=== PATIENT | female | born 1975 | race Caucasian/White ===

== ENCOUNTER 2016-09-25 17:28 | Emergency (ER) | payer OTHER ==
[~2016-09-25] VITALS: Ht 167.6 cm; Wt 108.9 kg
--- NOTE | 2016-09-25 17:54 | ED AMS/SEIZURE/WEAK/DIZZY ---
History of Present Illness General Chief Complaint: Dizziness Stated Complaint: PT WAS SENT BY FOR VERTIGO Source: patient Exam Limitations: no limitations Vital Signs & Intake/Output Vital Signs & Intake/Output Vital Signs Date Time Temp Pulse Resp B/P Pulse O2 O2 Flow FiO2 Ox Delivery Rate 09/25 2017 76 132/88 09/25 1846 98.0 74 18 140/93 96 Room Air 09/25 1736 70 154/96 09/25 1733 97.4 68 18 131/87 95 Room Air ED Intake and Output 09/26 0000 09/25 1200 Intake Total Output Total Balance Patient 240 lb Weight Allergies Coded Allergies: No Known Allergies (09/25/16) Reconcile Medications Levonorgestrel (Mirena) 20 MCG/24 HOUR (5 YEARS) IUD CONTROL (Reported) Meclizine HCl 25 MG TABLET 1 TAB PO Q8 PRN dizziness Metoclopramide HCl (Reglan) 10 MG TABLET 1 TAB PO 4 TIMES/DAY PRN nausea Triage Note: PRESENTS TO ED REPORTING DIZZINES SINCE SHE WOKE UP THIS AM. Triage Nurses Notes Reviewed? yes : No Patient currently breastfeeds: No HPI: Patient is a 41 year old female presents complaining of nausea and dizziness onset this morning after waking up. Symptoms worsen with head movement and lying down. Symptoms are currently severe, have been progressively worsening throughout the day. Pain is 0/10. Denies vomiting, fevers, chills, tinnitus, head trauma, extremity numbness or weakness. (JUNIOR GOFF) Past History Travel History Traveled to [place] past 21 day No Medical History Any Pertinent Medical History? none Surgical History Surgical History: non-contributory Psychosocial History What is your primary language Macanese Tobacco Use: Quit >30 days ago Family History Hx Contributory? No (JUNIOR GOFF) Review of Systems Review of Systems Constitutional: Denies: chills, fever. EENTM: Denies: ear pain, hearing changes, nasal congestion. Respiratory: Denies: cough, short of breath. Cardiovascular: Denies: chest pain, palpitations, syncope. GI: Reports: nausea. Denies: abdominal pain. Genitourinary: Reports: no symptoms. Musculoskeletal: Denies: back pain, neck pain. Skin: Reports: no symptoms. Neurological/Psychological: Denies: headache, numbness, unable to move lower ext, unable to move upper ext. Hematologic/Endocrine: Denies: bruising, bleeding. Immunologic/Allergic: Denies: splenectomy. (JUNIOR GOFF) Physical Exam Physical Exam General Appearance: well developed/nourished, alert, awake Head: atraumatic, normal appearance Eyes: Bilateral: normal appearance, PERRL, EOMI. Ears, Nose, Throat: normal pharynx, normal ENT inspection, hearing grossly normal, normal TM bilaterally Neck: normal inspection, supple, full range of motion, no appreciable carotid bruit Respiratory: normal breath sounds, chest non-tender, no respiratory distress Cardiovascular: regular rate/rhythm (no appreciable murmur) Back: normal inspection, normal range of motion Extremities: normal range of motion, strength 5/5, sensation normal Neurologic/Psych: no motor/sensory deficits, awake, alert, oriented x 3, guide visitor II- XII nml as tested Skin: intact, normal color, warm/dry Lymphatic: no anterior cervical samantha Core Measures ACS in differential dx? No CVA/TIA Diagnosis: No Severe Sepsis Present: No Septic Shock Present: No (JUNIOR GOFF) Progress Differential Diagnosis: arrythmia, anemia, benign positional vertigo, CVA/stroke , dehydration, drug intoxication, electrolyte imbalance, hypoglycemia, hypoxia, intracranial Hem., intracranial mass/tumor, labrynthitis, seizure disorder, vertebrobasilar insuff Plan of Care: Orders Procedure Date/time Status HUMAN BETA HCG SCREEN 09/25 1812 Complete CBC WITHOUT DIFFERENTIAL 09/25 1812 Complete BASIC METABOLIC PANEL 09/25 1812 Complete Laboratory Tests 09/25/16 1820: Anion Gap 15, Estimated GFR > 60, BUN/Creatinine Ratio 13.8, Glucose 98, Calcium 10.6 H, Total Beta HCG NEGATIVE, CBC w Diff NO MAN DIFF REQ, RBC 5.20, MCV 88.1 , MCH 29.1, RDW 13.3, MPV 8.6, Gran % 85.8 H, Lymphocytes % 9.7 L, Monocytes % 3.5, Eosinophils % 0.8, Basophils % 0.2, Absolute Granulocytes 10.0 H, Absolute Lymphocytes 1.1 L, Absolute Monocytes 0.4, Absolute Eosinophils 0.1, Absolute Basophils 0, PUBS MCHC 33.1 1904: Dizziness improving. No acute focal neurologic deficits, appears consistent with peripheral vertigo. Neuro imaging deferred. (JUNIOR GOFF) Initial ED EKG: none (JUNIOR GOFF) Departure Departure Time of Disposition: 1908 Disposition: HOME OR SELF CARE Condition: Stable Clinical Impression Primary Impression: Vertigo Referrals: RADHA DELA CRUZ (PCP/Family) ARMANDO VINSON MD Additional Instructions: Follow up with your primary care provider or with Dr. Vinson(ear nose and throat doctor) if no improvement within 2 days. Return to the ER if unable to stay hyrated or worsening of symptoms. Departure Forms: Customer Survey General Discharge Information Prescriptions: Current Visit Scripts Meclizine HCl 1 TAB PO Q8 PRN dizziness #12 TAB Metoclopramide HCl (Reglan) 1 TAB PO 4 TIMES/DAY PRN nausea #12 TAB (JUNIOR GOFF) PA/ELECTRICIAN HELPER [employer]OWERHOU[employer] Co-Sign Statement Statement: ED Attending supervision documentation- [] I saw and evaluated the patient. I have also reviewed all the pertinent lab results and diagnostic results. I agree with the findings and the plan of care as documented in the PA's/ELECTRICIAN HELPER POWERHOUSE's documentation. [X] I have reviewed the ED Record and agree with the PA's/ELECTRICIAN HELPER POWERHOUSE's documentation. [] Additions or exceptions (if any) to the PAs/ELECTRICIAN HELPER POWERHOUSE's note and plan are summarized below: [] (TERESA ABAD DO
[2016-09-25] MEDS ORDERED: MIRENA1 EACH (18:03)
[2016-09-25 18:31] LABS: ABSOLUTE BASOPHIL COUNT 0 /CUMM (0.0-0.2); ABSOLUTE EOSINOPHIL COUNT 0.1 /CUMM (0.0-0.7); ABSOLUTE LYMPH COUNT 1.1 /CUMM (1.2-3.4); ABSOLUTE MONOCYTE COUNT 0.4 /CUMM (0.10-0.60); BASOPHIL % 0.2 % (0.0-2.0); EOSINOPHIL % 0.8 % (0-5); GRANULOCYTE % 85.8 % (42.2-75.2); HEMATOCRIT 45.8 % (37-47); MEAN CORPUSCULAR HGB 29.1 PG (27.0-31.0); MEAN CORPUSCULAR HGB CONC 33.1 G/DL (33.0-37.0); MEAN CORPUSCULAR VOLUME 88.1 FL (81.0-99.0); MEAN PLATELET VOLUME 8.6 FL (7.4-10.4); PLATELET COUNT 322 /CUMM (130-400); RBC DISTRIBUTION WIDTH 13.3 % (11.5-14.5); WHITE BLOOD CELL COUNT 11.7 /CUMM (4.8-10.8)
[2016-09-25] MEDS ORDERED: MECLIZINE HCL25 MG PO (19:12)
[2016-09-25] MEDS ORDERED: REGLAN10 M1 PO (19:12)
[2016-09-25 20:18] VITALS: BP 132/88
== END 2016-09-25 20:18 ==
LOC: ERH 17:28
PROVIDERS: Physician Assistant
DX: R42 Dizziness and giddiness (principal)
CPT/HCPCS: 96374; 96375; J1200; J2765

== ENCOUNTER 2018-02-26 09:18 | Inpatient (IN) | payer OTHER ==
[~2018-02-26] VITALS: Ht 167.6 cm; Wt 113.4 kg
[~2018-02-26 09:18] MED LIST: MECLIZINE HCL25 MG PO; MIRENA1 EACH; PERCOCET 5-3251 EACH PO; REGLAN10 M1 PO
--- NOTE | 2018-02-26 10:00 | ED NECK/BACK PAIN COMPLAINT ---
History of Present Illness General Chief Complaint: Low Back Pain/Injury Stated Complaint: LBP Source: patient, family Exam Limitations: no limitations Vital Signs & Intake/Output Vital Signs & Intake/Output Vital Signs Date Time Temp Pulse Resp B/P B/P Pulse O2 O2 Flow FiO2 Mean Ox Delivery Rate 02/26 1458 98.1 72 20 133/86 98 Room Air 02/26 1258 97.7 89 18 132/80 98 Room Air 02/26 1153 98.1 92 18 129/84 98 Room Air 02/26 0929 97.6 105 30 133/79 100 Room Air ED Intake and Output 02/27 0000 02/26 1200 Intake Total Output Total Balance Patient 250 lb 250 lb Weight Weight Reported by Patient Measurement Method Allergies Coded Allergies: No Known Allergies (09/25/16) Reconcile Medications Levonorgestrel (Mirena) 20 MCG/24 HOUR (5 YEARS) IUD CONTROL (Reported) Meclizine HCl 25 MG TABLET 1 TAB PO Q8 PRN dizziness Metoclopramide HCl (Reglan) 10 MG TABLET 1 TAB PO 4 TIMES/DAY PRN nausea Oxycodone HCl/Acetaminophen (Percocet 5-325 MG Tablet) 5 MG-325 MG TABLET 1 TAB PO BID back pain Triage Note: 42F RETURNS FROM YESTERDAY FOR LBP WITH RADIATIONG AND NUMBNESS DOWN LEFT LEG. HAD MRI WHICH SHOWED SEVERAL PULGING AND PROTRUDING DISKS. UNABLE TO LAY, SIT OR WALK. 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 PAIN 10/10. DENIES LOSS OF B/B Triage Nurses Notes Reviewed? yes : No Patient currently breastfeeds: No HPI: Patient presents for evaluation of a severe left-sided back pain and left leg pain and paresthesias that began days ago. Patient was evaluated in the [facility] emergency Department and had an MRI scan that showed disc disease. Her case was discussed at that point with Dr. Olson, neurosurgery. She was planning on following up with the neurosurgeon but her pain has become uncontrolled again. She has been taking Percocet ibuprofen and Flexeril regularly but is still experiencing a severe pain that worsens with movement. She states that she has diminished sensation in the left lower extremity. Past History Travel History Traveled to [place] past 21 day No Medical History Any Pertinent Medical History? see below for history Neurological: NONE EENT: NONE Cardiovascular: NONE Respiratory: NONE Gastrointestinal: NONE Hepatic: NONE Renal: NONE Musculoskeletal: BACK PAIN, DISC DISEASE Psychiatric: NONE Endocrine: NONE Surgical History Surgical History: non-contributory Psychosocial History What is your primary language Monegasque Tobacco Use: Never used Family History Hx Contributory? No Review of Systems Review of Systems Constitutional: Reports: no symptoms. Eyes: Reports: no symptoms. Ears, Nose, Throat, Mouth: Reports: no symptoms. Respiratory: Reports: no symptoms. Cardiovascular: Reports: no symptoms. Gastrointestinal/Abdominal: Reports: no symptoms. Musculoskeletal: Reports: see HPI. Skin: Reports: no symptoms. Neurological/Psychological: Reports: paresthesia. All Other Systems: Reviewed and Negative Physical Exam Physical Exam Neck: SEE BELOW Comments: Gen.: Well-nourished, well-developed, no acute respiratory distress. Moderate to severe distress while at rest secondary to back pain. Pain worsens with movement. Head: Normocephalic, atraumatic. Eyes: Normal inspection bilaterally Ears: Normal inspection bilaterally Nose: Normal inspection Throat/mouth : Moist mucosa Neck: Supple, full range of motion, no goiter Lungs: Quiet respirations Back: Decreased range of motion secondary to pain. Tenderness over the lumbosacral spine without associated soft tissue swelling ecchymoses or erythema. Extremities: Upper extremities: Normal range of motion grossly, lower extremities: Exam limited as patient is sitting in a wheelchair with her left lower extremity and buttock lifted off the stretcher, supported on arms. Sensation is present but diminished and altered throughout the left lower extremity. Sensation is altered but present on the left saddle area compared to right. Neurologic: Cranial nerves grossly intact, speech is clear Skin: warm and dry Psychiatric: Calm, cooperative, no apparent delusions or hallucinations Core Measures CVA/TIA Diagnosis: No Progress Differential Diagnosis: cauda equina syn, herniated disc, myofascial strain, sciatica, DEGENERATIVE DISC DISEASE Plan of Care: Orders Procedure Date/time Status Regular Diet 02/26 D Complete Weight 02/26 1424 Active Vital Signs 02/26 1424 Active Teach/Educate 02/26 1424 Active Pain Treatment and Response 02/26 1424 Active Nutritional Intake, Monitor 02/26 1424 Active Isolation 02/26 1424 Active Intake & Output 02/26 1424 Active Patient Care Conference 02/26 1424 Active Activity/Ambulation 02/26 142 Active Pathway - chart 02/26 1236 Active House Staff 02/26 1236 Active Patient Data 02/26 1223 Active Misc Message 02/26 1217 Active ED Holding Orders 02/26 1217 Active Admit to inpatient 02/26 1217 Active Vital Signs 02/26 1217 Active Code Status 02/26 1217 Active Intake & Output 02/26 0930 Active Discharge Patient 02/26 UNK Active VTE Mechanical Prophylaxis 02/26 UNK Active Comments: 02/26/2018 10:31:47 AM patient and stepmother have requested Dr. Bennett's services. Dr. Man is covering for Dr. Bennett and I have discussed this patient's repeat ED presentation with him. Given the patient's request for Dr. Bennett, we will treat patient for pain here in the emergency department, admit her for pain control given her failure of outpatient management and have Dr. Bennett evaluate her tomorrow for possible surgical intervention. 02/26/2018 10:50:18 AM patient's case discussed with the surgical PA who called at the request of Dr. Man. Patient's case discussed with case management and she will be admitted for pain control and neurosurgical evaluation. 02/26/2018 11:25:23 AM patient's case discussed with surgical PA, steroids ordered. Awaiting hospitalist. 02/26/2018 12:10:53 PM patient's case discussed with Dr. Hernández. Departure Departure Disposition: STILL A PATIENT Condition: Stable Clinical Impression Primary Impression: Intractable back pain Secondary Impressions: Lumbar radiculopathy, Lumbosacral disc disease Referrals: Elisabeth Bruce (PCP/Family) Departure Forms: Customer Survey General Discharge Information Admission Note Spoke With: Bharati RAMIREZ,Eleno Herndon Documentation of Exam: Documentation of any treatments & extenuating circumstances including Concerns Regarding Discharge (functional status, medication knowledge or non-compliance, living conditions, etc.) that warrant an admission rather than observation: Patient has intractable back pain with radiculopathy to the left lower extremity. She is severely debilitated with pain and has failed outpatient management with muscle relaxers, anti-inflammatories and narcotic pain relievers. She cannot be treated adequately as an outpatient and would have great difficulty in compliance with outpatient treatment given her level of debility. I feel she requires hospitalization for more aggressive management of her pain with IV narcotics, benzodiazepines for muscle relaxation and IV anti- inflammatories. In addition patient should be treated with IV or oral steroids to help with associated inflammation of the disks. Patient should have serial neurology examinations to assess for worsening of neurologic deficit. Neurosurgical consultation should be obtained for the possibility of neurosurgical intervention and disc stabilization surgery. Patient should also be evaluated by physical therapy. Given the patient's disc disease and level of pain/debility I feel she will require a multiple day hospitalization. Follow-up Short-term rehabilitation placement is likely.
--- NOTE | 2018-02-26 11:56 | Cons- Neurosurgical ---
General Information and HPI Consulting Request Date of Consult: 02/26/18 Requested By: Dr Huerta ER Reason for Consult: back pain left leg pain Source of Information: patient, family, old records Exam Limitations: no limitations History of Present Illness: This is a 42-year-old female who arrives to the ER complaining of low back pain that radiates down the left leg. She was seen in the emergency room yesterday for the same symptoms and underwent a thorough evaluation including MRI scanning and labs. MRI revealed multiple level disc degeneration with left L5 S1 disc herniation compressing the S1 nerve root. Yesterday she was comfortable enough on the medications given to be discharged home. However this morning the pain in her leg was unbearable and she was having difficulty standing. She denies any change in her bowel or bladder habits and denies any saddle anesthesia. She has a history of degenerative disc disease going back to 2014 where she had 2 epidural steroid injections however she does not remember what level. She has been fine since then until recently, January 14, she reinjured her back. She went to her primary care physician and was started on a prednisone taper that helped minimally. She was then referred to Dr. Salinas on February 24 and underwent lumbar epidural steroid injection however she is unsure what level was injected. Initially her pain stabilized after injection after the injection but it soon returned. She reports numbness and tingling to the left leg that follows the L5 and S1 dermatomes. She denies any motor weakness and denies any fevers or chills. She is tolerating a regular diet without nausea vomiting or a flulike syndrome Allergies/Medications Allergies: Coded Allergies: No Known Allergies (09/25/16) Home Med List: Levonorgestrel (Mirena) 20 MCG/24 HOUR (5 YEARS) IUD CONTROL (Reported) Meclizine HCl 25 MG TABLET 1 TAB PO Q8 PRN dizziness Metoclopramide HCl (Reglan) 10 MG TABLET 1 TAB PO 4 TIMES/DAY PRN nausea Oxycodone HCl/Acetaminophen (Percocet 5-325 MG Tablet) 5 MG-325 MG TABLET 1 TAB PO BID back pain Current Medications: Current Medications Sig/Luis Start time Last Medication Dose Route Stop Time Status Admin Diphenhydramine HCl 0 .STK-MED ONE 02/26 1004 DC .ROUTE Diphenhydramine HCl 25 MG ONCE ONE 02/26 1000 DC 02/26 IV 02/26 1001 1013 Ketorolac 0 .STK-MED ONE 02/26 1005 DC Tromethamine .ROUTE Ketorolac 30 MG ONCE ONE 02/26 1000 DC 02/26 Tromethamine IV 02/26 1001 1013 Lorazepam 0 .STK-MED ONE 02/26 1005 DC .ROUTE Lorazepam 0.5 MG ONCE ONE 02/26 1000 DC 02/26 IV 02/26 1001 1013 Methylprednisolone 0 .STK-MED ONE 02/26 1152 DC .ROUTE Methylprednisolone 125 MG ONCE ONE 02/26 1130 DC 02/26 IV 02/26 1131 1152 Morphine Sulfate 0 .STK-MED ONE 02/26 1004 DC .ROUTE Morphine Sulfate 6 MG ONCE ONE 02/26 1000 DC 02/26 IV 02/26 1001 1013 Sodium Chloride 500 ML BOLUS ONE 02/26 1000 DC 02/26 IV 02/26 1059 1014 Past History Medical History Neurological: NONE EENT: NONE Cardiovascular: NONE Respiratory: NONE Gastrointestinal: NONE Hepatic: NONE Renal: NONE Musculoskeletal: BACK PAIN, DISC DISEASE Psychiatric: NONE Endocrine: NONE Other Medical Hx: bilateral lower extremity edema for which she takes Lasix on occasion Surgical History Pertinent Surgical History: non-contributory Psychosocial History Where Do You Live? Home Review of Systems Review of Systems Constitutional: Reports: weakness. Denies: chills, fever. EENTM: Denies: no symptoms. Cardiovascular: Denies: no symptoms, chest pain, palpitations. Respiratory: Denies: no symptoms. GI: Denies: no symptoms. Genitourinary: Denies: no symptoms. Musculoskeletal: Reports: back pain, muscle pain, muscle stiffness. Skin: Denies: no symptoms. Neurological/Psychological: Reports: paresthesia, tingling. Hematologic/Endocrine: Denies: no symptoms. Exam & Diagnostic Data Vital Signs and I&O Vital Signs Date Time Temp Pulse Resp B/P B/P Pulse O2 O2 Flow FiO2 Mean Ox Delivery Rate 02/26 1153 98.1 92 18 129/84 98 Room Air 02/26 0929 97.6 105 30 133/79 100 Room Air Intake & Output 02/26 1600 02/26 0800 02/26 0000 02/25 1600 02/25 0800 02/25 0000 Intake Total Output Total Balance Patient 250 lb Weight Physical Exam: On physical examination patient is lying comfortably on the stretcher her pain is controlled and she can answer questions easily. Her mother is present for the examination Patient is alert and oriented 3 in no obvious distress HE ENT is within normal limits Neck is supple nontender with active range of motion Chest is clear to auscultation symmetric without rales rhonchi or wheeze Heart is regular rate rhythm without murmurs rubs gallops Abdomen is rounded nontender no guarding no rebound positive bowel sounds No saddle anesthesia noted no change in rectal tone Bilateral lower extremities-there is 1+ pitting edema, calves are soft Examination of the lumbar spine there is no midline spinal tenderness and no erythema at the site of the epidural injection there is moderate pain to palpation along the left paraspinal musculature radiating down to the PSIS. There is paresthesias noted following along the left buttock down the posterior lateral aspect of the leg into the plantar aspect of the foot. There is a positive straight leg raise test on the left. Motor exam reveals deficits in left EHL function and dorsiflexion of the ankle 4 /4 There is a diminished Achilles reflex on the left 1+ All else is normal. When asked to stand she sits at the bedside and can raise herself to a standing position. she can heal and toe walk with assistance reporting pins and needles to the plantar aspect of her left foot Imaging Results: MRI - Multilevel degenerative spondylotic changes most notable at the following levels: - L5-S1: Left subarticular extrusion with inferior migration causing mass effect on the descending left S1 nerve root and mild spinal canal stenosis. - L3-L4: Right foraminal protrusion causing mild mass effect on the foraminal segment of the right L3 nerve root. - T11-T12: Left paracentral disc extrusion without high-grade stenosis. Assessment/Plan Assessment/Plan 42-year-old female with a 6 week history of intermittent back pain with left radicular symptoms that has become worse despite a recent epidural steroid injection. She has failed conservative management of her symptoms as an outpatient. MRI shows a left L5-S1 HNP with with S1 nerve compression and canal stenosis. She will be admitted for pain management and continual monitoring of her motor function. Patient is started on Solu-Medrol which is administered in the emergency room and will require IV pain medication. She should be on a normal diet however nothing by mouth after midnight. She is weightbearing as tolerated with assistance. Alps for DVT prophylaxis Consult Acknowledgment - Thank you for your consult request.
--- NOTE | 2018-02-26 12:30 | History & Physical ---
Riccardo RAMIREZ,[facility] 02/26/18 1229: General Information and HPI MD Statement: I have seen and personally examined JUANITA ALVAREZ and documented this H&P. The patient is a 42 year old F who presented with a patient stated chief complaint of intractable back pain. Source of Information: patient, family, old records Exam Limitations: no limitations History of Present Illness: 42-year-old lady with a history of degenerative disc disease diagnosed in 2014 treated with epidural steroid injections, presents to [place] ED complaining of low back pain with radiation down her left leg. Patient reports that after treatment in 2014 her lower back symptoms had resolved until this year in January when she injured her back. She was seen by her primary care physician and treated with a prednisone taper which report only give a minimal pain relief. Patient was then referred to neurosurgeon (Dr. Salinas) and underwent lumbar epidural steroid injection on February 24. She reports that the injection helped her her pain only momentarily. On the , she presented to [facility] ED after injuring her back in the showers. An MRI was obtained which showed an L5-S1 herniation and S1 nerve compression with canal stenosis. She was then sent home yesterday from the ED with instructions to follow with neurosurgeon. Her intractable back pain is what brought her back today. She denies any fevers, chills, bowel or urinary incontinence, saddle anesthesia, or any other focal neurological deficits. Allergies/Medications Allergies: Coded Allergies: No Known Allergies (09/25/16) Home Med list Levonorgestrel (Mirena) 20 MCG/24 HOUR (5 YEARS) IUD CONTROL (Reported) Meclizine HCl 25 MG TABLET 1 TAB PO Q8 PRN dizziness Metoclopramide HCl (Reglan) 10 MG TABLET 1 TAB PO 4 TIMES/DAY PRN nausea Oxycodone HCl/Acetaminophen (Percocet 5-325 MG Tablet) 5 MG-325 MG TABLET 1 TAB PO BID back pain Past History Travel History Traveled to [place] past 21 day No Medical History Neurological: NONE EENT: NONE Cardiovascular: NONE Respiratory: NONE Gastrointestinal: NONE Hepatic: NONE Renal: NONE Musculoskeletal: BACK PAIN, DISC DISEASE Psychiatric: NONE Endocrine: NONE Other Medical Hx: bilateral lower extremity edema for which she takes Lasix on occasion Surgical History Surgical History: non-contributory Past Family/Social History Psychosocial History Where do you live? Home Review of Systems Review of Systems Constitutional: Reports: no symptoms. EENTM: Reports: no symptoms. Cardiovascular: Reports: no symptoms. Respiratory: Reports: no symptoms. GI: Reports: no symptoms. Genitourinary: Reports: no symptoms. Musculoskeletal: Reports: see HPI. Skin: Reports: no symptoms. Neurological/Psychological: Reports: no symptoms. Hematologic/Endocrine: Reports: no symptoms. Immunologic/Allergic: Reports: no symptoms. All Other Systems: Reviewed and Negative Exam & Diagnostic Data Last 24 Hrs of Vital Signs/I&O Vital Signs Date Time Temp Pulse Resp B/P B/P Pulse O2 O2 Flow FiO2 Mean Ox Delivery Rate 02/26 1258 97.7 89 18 132/80 98 Room Air 02/26 1153 98.1 92 18 129/84 98 Room Air 02/26 0929 97.6 105 30 133/79 100 Room Air Intake & Output 02/26 1600 02/26 0800 02/26 0000 Intake Total Output Total Balance Patient 113.398 kg Weight Physical Exam General Appearance Alert, Oriented X3, Cooperative, No Acute Distress Skin No Significant Lesion Skin Temp/Moisture Exam: Warm/Dry HEENT Atraumatic, PERRLA, Mucous Membr. moist/pink Neck Supple, No JVD Lymphatic Cervical nl Cardiovascular Regular Rate, Normal S1, Normal S2 Lungs Clear to Auscultation, Normal Air Movement Abdomen Normal Bowel Sounds, Soft Neurological Normal Speech, Normal Tone, Sensation Intact, positive straight leg exam of the left extremities,, no spinal tenderness on plapation Extremities No Clubbing, No Cyanosis, Normal Pulses Assessment/Plan Assessment: 42-year-old lady with a history of degenerative disc disease previously treated with epidural steroid with no recurrent pain for years, presents with intractable low back pain secondary to an injury in January and is found to have radiological findings of L5-S1 herniation and S1 nerve compression with canal stenosis. MRI - Multilevel degenerative spondylotic changes most notable at the following levels: - L5-S1: Left subarticular extrusion with inferior migration causing mass effect on the descending left S1 nerve root and mild spinal canal stenosis. - L3-L4: Right foraminal protrusion causing mild mass effect on the foraminal segment of the right L3 nerve root. - T11-T12: Left paracentral disc extrusion without high-grade stenosis. Impression Intractable back pain. Unrelieved by oral opioids and epidural steroid given at outpatient site. Her cause of thos episode of back pain is secondary to trauma in the context of medical history of degenerative disc disease. Lumbar radiculopathy with sacral nerve compression with canal stenosis. as evident by her back pain with radiation abd MRi findings. Plan Admit to general medicine Status post Solu-Medrol 125 mg IV given by ED staff, will continue with steroid medication Adequate pain control Valium 5mg qid N.p.o. starting midnight per neurosurgery recommendation f/u neuro reccs Code status:FC DVT PPX:ALPS/ENOXAPARIN As Ranked By This Provider Problem List: 1. Intractable back pain 2. Lumbar radiculopathy 3. Lumbosacral disc disease Core Measures/Misc (03/27) Acute Coronary Syndrome ACS Diagnosis: No Congestive Heart Failure Congestive Heart Failure Diagnosis No Cerebrovascular Accident CVA/TIA Diagnosis: No VTE (View Protocol) VTE Risk Factors Acute Medical Illness No Mechanical VTE Prophylaxis d/t N/A MechProphylax Ordered No VTE Pharm Prophylaxis d/t NA PharmProphylax ordered Sepsis (View protocol) Sepsis Present: No If YES complete Sepsis Event Note If YES complete Sepsis Event Note Katie Calabresefredrick 02/26/18 1750: Core Measures/Misc (03/27) Sepsis (View protocol) If YES complete Sepsis Event Note If YES complete Sepsis Event Note Attending MD Review Statement Attending Statement Attending MD Statement: examined this patient, discuss w/resident/PA/DIRECTOR OF MECHANICAL ENGINEERING, agreed w/resident/PA/DIRECTOR OF MECHANICAL ENGINEERING, discussed with family, reviewed EMR data (avail) Attending Assessment/Plan: 42 yr old female admitted with back pain radiating into left leg with numbness. pt was seen by neurosurgery and was given steroids and pts symptoms improved with that and so plan will be to dc her home on meds and she will f/u with neurosurgery as an outpatient for surgical eval .
[2018-02-26 14:58] VITALS: BP 133/86
--- NOTE | 2018-02-26 16:21 | PN- Neurosurgical ---
Surgical Brief Attending Note Brief Attending Note: PT admitted for severe pain and paresthesias due to large left L5-S1 HNP. Worse over last 6 weeks. Pain severe with no improvement from injections. Some improvement with Percocet and bedrest. Neurologically intact on examination with SLR pain left Large left L5-S1 disc on scan Discussed with pt. She is a potentially surgical candidate. I dont think she needs urgent surgery. She will be discharged to home with medications and follow in office. To call with any changes.
--- NOTE | 2018-02-26 16:38 | Patient Discharge Instructions ---
Discharge Instructions General Discharge Information You were seen/treated for: HNP L5-S1 You had these procedures: none Watch for these problems: fevers chills, motor weakness, increasing pain Diet Continue normal diet: Yes Activity Full Activity/No Limits: No Activity Self Limited: Yes Acute Coronary Syndrome Inclusion Criteria At DC or during hospital stay patient has or had the following: ACS DIAGNOSIS No Discharge Core Measures Meds if any: Prescribed or Continued at Discharge OVIDIO/ARB if EF <40% No Meds if any: NOT Prescribed or Continued at Discharge Congestive Heart Failure Inclusion Criteria At DC or during hospital stay patient has or had the following: CHF DIAGNOSIS No Discharge Core Measures Meds if any: Prescribed or Continued at Discharge Meds if any: NOT Prescribed or Continued at Discharge Cerebrovascular accident Inclusion Criteria At DC or during hospital stay patient has or had the following: CVA/TIA Diagnosis No Discharge Core Measures Meds if any: Prescribed or Continued at Discharge Meds if any: NOT Prescribed or Continued at Discharge Venous thromboembolism Inclusion Criteria VTE Diagnosis No VTE Type NONE VTE Confirmed by (Test) NONE Discharge Core Measures - Per Current guidelines, there needs to be overlap - treatment for the first 5 days of Warfarin therapy. - If discharged on Warfarin prior to 5 days of - overlap therapy, the patient will need to be - assessed for post discharge needs including - *Post discharge parental anticoagulation - *Warfarin and/or parental anticoagulation education - *Follow up date to check INR post discharge At least 5 days overlap therapy as Inpatient No Meds if any: Prescribed or Continued at Discharge Note: Overlap Therapy is Warfarin and Anticoagulant Meds if any: NOT Prescribed or Continued at Discharge
--- NOTE | 2018-02-26 17:51 | Admission Certification ---
Admission Certification Certification Statement - As attending physician, I certify that at the time of - admission, based on clinical presentation, severity of - symptoms, need for further diagnostic testing and - therapeutic interventions, and risk of adverse outcomes - without in-hospital treatment, in my clinical assessment, - this patient requires an acute hospital stay for a minimum - of two nights or longer. I have also considered psychsocial - factors such as support system, advanced age, financial - issues, cognitive issues, and failed out-patient treatments, - past re-admission history, safety of patient, and lack of - compliance as applicable. Specific rationale supporting this admission is: Radiculopathic back pain with numbness in left leg.
== END 2018-02-26 19:30 | DRG 552 ==
LOC: ERH 09:18 → ERHI 12:17 → ENRESERV 12:32 → ENTRNSPT 13:00 → EDTRNSPTSTS 13:19 → EDTRNSPT 13:19 → 2NB 13:21 → CMPTRNSPT 13:48 → ENTRNSPT 19:06 → EDTRNSPT 19:10 → EDTRNSPTSTS 19:10 → 2NB 19:30 → CMPTRNSPT 19:42
DX: M51.17 Intervertebral disc disorders with radiculopathy, lumbosacral region (principal); M51.06 Intervertebral disc disorders with myelopathy, lumbar region; M48.07 Spinal stenosis, lumbosacral region
CPT/HCPCS: 2NBSP; J1200; J1885; J2930